=== PATIENT | male | born 1970 | race Caucasian/White ===

== ENCOUNTER 2017-02-17 23:40 | Emergency (ER) | payer SELFPAY ==
[~2017-02-17] VITALS: Ht 190.5 cm; Wt 81.6 kg
[~2017-02-17 23:40] MED LIST: ERYT1OIN6 OD; OFLO5DRO OD
[2017-02-18] MEDS ORDERED: DIPHTH,PERTUSS(ACELL),TET TOX 0.5 ML DISP.SYRIN. VAX IM ONE ×2 (00:01→00:30)
[2017-02-18 00:05] LABS: BASO % 0 % (0-3); EOS % 3 % (0-3); HEMATOCRIT 46.7 % (39.0-53.0); HEMOGLOBIN 16.2 g/dL (13.0-17.5); LYMPH # 4.4 x10^3/uL (1.0-4.8); LYMPH % 47 % (24-48); MEAN CORPUSCULAR HEMOGLOBIN 32 pg (25-35); MEAN CORPUSCULAR HGB CONC 35 g/dL (31-37); MEAN CORPUSCULAR VOLUME 91 fL (79-100); MONO % 7 % (0-9); NEUT % 43 % (31-73); PLATELET COUNT 223 x10^3/uL (140-400); RED BLOOD COUNT 5.14 x10^6/uL (4.30-5.70); RED CELL DISTRIBUTION WIDTH 12.6 % (11.5-14.5); WHITE BLOOD COUNT 9.4 x10^3/uL (4.0-11.0)
[2017-02-18] MEDS: fentaNYL PF VIAL 100 MCG/2 ML VIAL IV PRN ×2 (00:07→00:26)
[2017-02-18 00:10] LABS: CALCIUM 9.1 mg/dL (8.5-10.1); CREATININE 1.2 mg/dL (0.7-1.3); GFR 64.9; POTASSIUM 3.6 mmol/L (3.5-5.1)
[2017-02-18] MEDS ORDERED: AMOX500C PO (00:10)
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
[2017-02-18 00:13] LABS: PROTHROMBIN TIME PATIENT 12.7 SEC (11.7-14.0)
[2017-02-18] MEDS ORDERED: IV RINGERS,LACTATED 500ML 500 ML IV ONE (00:30)
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
[2017-02-18] MEDS ORDERED: LIDOCAINE 1% / SOD BICARB 8.4% 20 ML VIAL. IJ ONE (01:00)
[2017-02-18 01:25] LABS: BILIRUBIN,URINE NEGATIVE (NEG); GLUCOSE,URINE NEGATIVE (NEG); NITRITE,URINE NEGATIVE (NEG); PROTEIN,URINE NEGATIVE (NEG-TRACE); UROBILINOGEN,URINE 0.2 mg/dL (0.2 mg/dL)
[2017-02-18 01:31] LABS: BARBITURATES NEG (NEG); BENZODIAZEPINES NEG (NEG); CANNABINOIDS POS (NEG); COCAINE NEG (NEG); METHADONE NEG (NEG); OPIATES NEG (NEG); PHENCYCLIDINE NEG (NEG)
[2017-02-18 01:36] LABS: BACTERIA,URINE 0 /HPF (0-FEW); RBC,URINE OCC /HPF (0-2); SQUAMOUS EPITHELIAL CELL,UR OCC /LPF; WBC,URINE 0 /HPF (0-4)
[2017-02-18 01:48] VITALS: BP 144/73
[2017-02-18] MEDS ORDERED: HYDR-2758 PO (01:50)
[2017-02-18] MEDS ORDERED: CALC200T3 PO (01:50)
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
--- NOTE | 2017-02-18 08:04 | RAD ---
Exam: Left and right hand radiographs 02/18/2017 at 0136 hours Indication: Bilateral hand pain Comparison: None available Technique: 3 views of the left and 3 views the right hand are provided. Findings: Right hand: There is no acute fracture or dislocation. No joint space narrowing. No soft tissue swelling. No osseous erosion or soft tissue gas. Bone mineralization is within normal limits. Left hand: There is a 7 mm linear radiopaque foreign density identified along the proximal phalanx of the first digit and along the palmar aspect of the first interphalangeal joint. No acute fracture or dislocation. Joint spaces are maintained. Osseous mineralization is within normal limits. Impression: 1. Radiopaque foreign density is identified along the palmar aspect of the first digit of the left hand, as detailed above. 2. No acute fracture or dislocation of the right hand.
== END 2017-02-18 02:17 | disposition home or self-care (01) ==
LOC: ER 23:40
DX: S02.5XXA Fracture of tooth (traumatic), initial encounter for closed fracture (principal); S01.81XA Laceration without foreign body of other part of head, initial encounter; S40.812A Abrasion of left upper arm, initial encounter; S40.811A Abrasion of right upper arm, initial encounter; S80.812A Abrasion, left lower leg, initial encounter; S80.811A Abrasion, right lower leg, initial encounter; V43.52XA Car driver injured in collision with other type car in traffic accident, initial encounter; Y93.I9 Activity, other involving external motion; Y92.410 Unspecified street and highway as the place of occurrence of the external cause; Y99.8 Other external cause status
CPT/HCPCS: 12011; 36415; 70450; 71010; 72125; 73130; 80048; 80307; 81001; 83605; 84484; 85025; 85610; 85730; 90471; 90715; 96361; 96374; 99285; G0480; J3010; J7120; G0479